=== PATIENT | female | born 1985 | race African-American/Black ===

== ENCOUNTER 2018-03-07 06:24 | Emergency (ER) | payer MEDICAID, SELFPAY ==
[~2018-03-07] VITALS: Ht 165.1 cm; Wt 100.0 kg
[2018-03-07 06:32] VITALS: BP 145/81
[2018-03-07] MEDS ORDERED: WELLBUTRIN (06:35)
[2018-03-07] MEDS ORDERED: SINGULAIR (06:35)
[2018-03-07] MEDS ORDERED: XANAX (06:35)
== END 2018-03-07 07:11 | disposition home or self-care (01) ==
LOC: ED 06:58
DX: J02.0 Streptococcal pharyngitis (principal); F17.200 Nicotine dependence, unspecified, uncomplicated
CPT/HCPCS: 99283